=== PATIENT | female | born 1980 | race Caucasian/White ===

== ENCOUNTER 2019-10-30 16:56 | Emergency (ER) | payer OTHER ==
[~2019-10-30] VITALS: Ht 157.5 cm; Wt 62.6 kg
--- NOTE | 2019-10-30 17:30 | NUR ---
PT BIB FAMILY C/O NEMBNESS TO HEAD AND SHOULDERS SINCE YESTERDAY, PT IS AAOX4, NOT IN RESPIRATORY DISTRESS, HOOKED TO MONITOR, KEPT RESTED AND COMFORTABLE, WILL CONTINUE TO MONITOR.
--- NOTE | 2019-10-30 17:44 | NUR ---
SEEN AND EXAMINED BY .
--- NOTE | 2019-10-30 17:51 | NUR ---
ER PHLEB AT BEDSIDE FOR BLOOD DRAW.
[2019-10-30 17:55] LABS: BASOPHILS # (AUTO) 0.1 /CMM (0.0-0.2); BASOPHILS % (AUTO) 0.8 % (0.0-2.0); EOSINOPHILS % (AUTO) 0.2 % (0.0-6.0); HEMATOCRIT 44 % (33-45); LYMPHOCYTES # (AUTO) 1.8 /CMM (0.8-4.8); LYMPHOCYTES % (AUTO) 18.7 % (20.0-44.0); MEAN CORPUSCULAR HGB CONC 34 g/dl (31.0-36.0); MEAN CORPUSCULAR VOLUME 87 fL (82-100); MONOCYTES # (AUTO) 0.6 /CMM (0.1-1.30); MONOCYTES % (AUTO) 6.2 % (2.0-12.0); NEUTROPHILS # (AUTO) 7.3 /CMM (1.8-8.9); NEUTROPHILS % (AUTO) 74.1 % (43.0-81.0); PLATELET COUNT (AUTO) 218 /CMM (150-450); RED BLOOD CELL COUNT(AUTO) 5.13 MIL/uL (4.0-5.2); WHITE BLOOD COUNT (AUTO) 9.8 K/uL (4.3-11.0)
--- NOTE | 2019-10-30 17:59 | NUR ---
PT IS WHEELED TO CT SCAN VIA [facility].
[2019-10-30 18:02] LABS: CALCIUM, SERUM 9.4 mg/dL (8.5-10.1); CREATININE 0.7 mg/dL (0.6-1.3)
[2019-10-30 18:08] LABS: ALBUMIN 4.3 g/dL (3.4-5.0); BILIRUBIN,DIRECT 0.1 mg/dL (0.0-0.2); BILIRUBIN,TOTAL 0.3 mg/dL (0.2-1.0); TOTAL PROTEIN, SERUM 8.1 g/dL (6.4-8.2)
--- NOTE | 2019-10-30 18:29 | NUR ---
Patient discharged to home in stable condition. Written and verbal after care instructions given. Patient verbalizes understanding of instruction.
[2019-10-30 18:30] VITALS: BP 131/89
== END 2019-10-30 18:30 | disposition home or self-care (01) ==
LOC: ER 17:02
DX: F41.9 Anxiety disorder, unspecified (principal); R20.2 Paresthesia of skin; Z60.2 Problems related to living alone
CPT/HCPCS: 36415; 70450-TC; 80048-TC; 80076-TC; 85025-TC

== ENCOUNTER 2019-11-19 11:11 | Emergency (ER) | payer OTHER ==
[~2019-11-19] VITALS: Ht 157.5 cm; Wt 61.3 kg
[2019-11-19] MEDS ORDERED: IPRATROPIUM NEB FS 0.5 MG/2.5 ML AMPUL.NEB ONE (12:12)
[2019-11-19] MEDS ORDERED: ALBUTEROL FS 2.5 MG/3 ML VIAL.NEB ONE (12:12)
[2019-11-19] MEDS ORDERED: IPRATROPIUM NEB FS 0.5 MG/2.5 ML AMPUL.NEB NEB ONE (12:30)
[2019-11-19] MEDS ORDERED: ALBUTEROL FS 2.5 MG/3 ML VIAL.NEB CONTNEB ONE (12:30)
[2019-11-19 13:22] VITALS: BP 137/78
== END 2019-11-19 13:23 | disposition home or self-care (01) ==
LOC: ER 11:11
DX: J06.9 Acute upper respiratory infection, unspecified (principal); J45.909 Unspecified asthma, uncomplicated
CPT/HCPCS: 71045-TC

== ENCOUNTER 2020-09-18 11:02 | Emergency (ER) | payer OTHER ==
[~2020-09-18] VITALS: Ht 157.5 cm; Wt 61.2 kg
--- NOTE | 2020-09-18 11:10 | NUR ---
BIB SELF C/O SOB AND CHEST PRESSURE STARTED THIS MORNING +COVID 09/15/20. PATIENT A/OX4, BREATHING EVEN AND UNLABORED, NO SOB NOTED, NEEDS ATTENDED. KEPT COMFORTABLE.
[2020-09-18] MEDS ORDERED: ALBUTEROL FS 2.5 MG/3 ML VIAL.NEB ONE (11:51)
[2020-09-18] MEDS ORDERED: IPRATROPIUM NEB FS 0.5 MG/2.5 ML AMPUL.NEB ONE (11:51)
[2020-09-18] MEDS ORDERED: IPRATROPIUM NEB FS 0.5 MG/2.5 ML AMPUL.NEB NEB ONE (12:00)
[2020-09-18] MEDS ORDERED: ALBUTEROL FS 2.5 MG/3 ML VIAL.NEB NEB ONE (12:00)
--- NOTE | 2020-09-18 12:47 | NUR ---
Patient a/ox4, breathing even and unlabored, noted with coughing. Ambulatory with no sob. Needs attended. Patient discharged to home in stable condition. Written and verbal after care instructions given. Patient verbalizes understanding of instruction.
[2020-09-18 12:48] VITALS: BP 137/100
== END 2020-09-18 12:48 | disposition home or self-care (01) ==
LOC: ER 11:05
DX: U07.1 COVID-19 (principal); Z60.2 Problems related to living alone
CPT/HCPCS: 71045-TC